=== PATIENT | female | born 1945 | race Caucasian/White ===

== ENCOUNTER → 2022-08-03 09:21 | Outpatient (CLI) | payer MEDICARE, SELFPAY ==
[2022-08-03 12:44] LABS: Cancer Antigen 125 12.5 U/mL (0-35)
== END ==
PROVIDERS: PCP Internal Medicine; Referring Provider Obstetrics & Gynecology; Visit Provider Obstetrics & Gynecology
DX: R19.4 Change in bowel habit (principal); R19.09 Other intra-abdominal and pelvic swelling, mass and lump
CPT/HCPCS: 36415; 86304

== ENCOUNTER 2024-08-05 07:56 | Day surgery (SDC) | payer MEDICARE, SELFPAY ==
[2024-08-01 07:54] VITALS: BMI 27.3
[2024-08-05] VITALS (15 sets, daily range): BP systolic 124–167; BP diastolic 63–86; PULSE 54–731; RESP 11–20; TEMP 35.7–36.6; O2SAT 90–100; BMI 27.1
--- NOTE | 2024-08-05 | PATH_ITS ---
[facility] Accession Number: [id number] No. of containers..01 Tissue . 01 Material submitted: . uterus - UTERUS, BILATERAL FALLOPIAN TUBES AND BILATERAL OVARIES . 01 Diagnosis: UTERUS, BILATERAL FALLOPIAN TUBES AND BILATERAL OVARIES, HYSTERECTOMY AND BILATERAL SALPINGO-OOPHORECTOMY: Nonproliferative endometrium. Cervix with no significant diagnostic alterations. Benign leiomyomata. Bilateral ovaries with inclusion cysts. Bilateral fimbriated fallopian tubes with no significant pathologic alterations. [facility] 08/08/2024 1058 Local . 01 Electronically signed: . Lissa Murrieta MD, Pathologist NPI- [id number] . 01 Gross description: . Received in formalin with two patient identifiers and uterus, fallopian tubes, ovaries, bilateral, is an intact uterus (37 grams, 5.4 cm superior to inferior, 4.9 cm medial to lateral, 2.5 cm anterior to posterior) with attached cervix (3.8 x 3.2 cm), left fallopian tube (5.2 x 0.7 cm), left ovary (1 gram, 1.9 x 1.2 x 1.0 cm), right fallopian tube (6.9 x 0.8 cm), right ovary (1 gram, 2.3 x 1.5 x 1.1 cm). . The ectocervix is shen and wrinkled with a patulous os, 0.6 cm in diameter. The serosa has several nodules ranging from 0.5 to 1.8 cm in greatest dimension. The anterior is inked blue while the posterior is inked black. The endocervical margin has shen herringbone mucosa and measures 1.6 cm in length. The endometrial cavity is 1.9 cm from cornu to cornu and 2.2 cm in length with red velvety endometrium that averages 0.1 cm thick. The myometrium is shen and mildly trabecular, and measures up to 1.2 cm in maximum thickness with multiple well-circumscribed white whorled nodules up to 0.7 cm in greatest dimension located intramurally. . Both fallopian tube has violaceous smooth serosa with cystic structures up to 0.2 cm in greatest dimension filled with cloudy serous fluid. The lumens are stellate and unremarkable. . Both ovaries have a shen cerebriform surface with multiple cystic structure, 0.1 x 0.4 cm in greatest dimension, translucent with clear serous fluid. The cut surfaces are physiologic and unremarkable. . Tamale Maker sections are submitted as follows: A1: Anterior cervix. A2: Posterior cervix. A3: Anterior full thickness section. A4: Posterior full thickness section. A5: Nodules. A6: Left fallopian tube to include one-half of bisected fimbriae and cross sections. A7: Left ovary. A8: Right fallopian tube to include one-half of bisected fimbriae ad cross sections. A9: Right ovary. ([id number]) /MRV 08/07/2024 0401 Local . 01 Pathologist provided ICD-10: D25.9 . 01 CPT . 574644 Specimen Comment: A courtesy copy of this report has been sent to [phone] Performed at: [facility] [address], [place], [place] [id number] MD Lalit Frey MD Phone: [phone]
[2024-08-05] MEDS: LACTATED RINGERS 1,000 ML 42 ML IV ×2 (08:41→12:19)
--- NOTE | 2024-08-05 09:38 | PM.PREOP ---
Pre-operative Note Interval Note History & Physical reviewed/Exam performed by Physician: Yes Changes to H&P: No H&P completed within 30 days and has changed as indicated here:: 07/24/24
[2024-08-05] MEDS: CEFAZOLIN 2 GM/100 ML PREMIX 100 ML IV (09:46)
--- NOTE | 2024-08-05 10:13 | SUR.OPER ---
Lithotomy on padded OR bed. [place] Pad Positioner under torso. Head on pillow, arms padded and tucked at sides. Legs secured in padded yellow fins stirrups.
[2024-08-05] MEDS: BUPIVACAINE 0.25% (PF) 30 ML, EPINEPHrine 0.15 MG INJ (10:19)
[2024-08-05] MEDS: BUPIVACAINE 0.25% W/ EPI (PF) 10 ML VIAL 20 ML INJ (10:59)
--- NOTE | 2024-08-05 11:59 | P.OP_ITS ---
Operative Date/Time/Diagnoses Date of procedure: 08/05/24 Time of procedure: 11:59 Pre-op diagnosis: Symptomatic uterine prolapse, cystocele, rectocele Post-op diagnosis: same Procedure & Clinicians Procedure: Procedures Operation Date: 08/05/24 09:45 Actual Procedure Side Surgeon p Laparoscopic Assisted Vaginal Hysterectomy bilateral salingo-oophorectomy ly sis adhesion Nereida Echevarria MD s Anterior/Posterior Repair Nereida Echevarria MD Indications: 79-year-old 2 para 2 with symptomatic uterine prolapse, cystocele, and rectocele. Patient has used a pessary, but now desires definitive surgical therapy. Surgeon: Nereida Echevarria [employer] History Teacher: Yanet Brown Anesthesia Type: General and Local Operative Notes Findings: 5 week size prolapsed uterus Small 2 cm fibroid on the posterior uterus Normal tubes and ovaries Second-degree uterine prolapse Second-degree rectocele Second-degree cystocele Normal liver and gallbladder Normal appendix Adhesions in the right lower quadrant Closure Type: primary Specimen(s): left tube & ovary, right tube & ovary and uterus Applied: catheter and other (Betadine moistened vaginal packing) Estimated blood loss (mL): 50 Blood products transfused: none Procedure in detail: The patient was taken to the operating room where she was placed in the dorsal supine position. After adequate general endotracheal anesthesia was achieved, she was placed in the dorsal lithotomy position, and prepped and draped in the usual sterile fashion. A time-out was performed. A bivalve speculum was placed into the vagina, and a single-tooth tenaculum was placed on the anterior lip of the cervix. The cervical os was sequentially dilated until the ZUMI uterine manipulator could pass easily into the endometrial cavity. The single-tooth tenaculum was removed from the anterior lip of the cervix, and the bivalve speculum was removed from the vagina. Attention was then turned to the abdomen where 6 mL of half percent Marcaine with epinephrine were injected in the umbilical fold. A 5 mm incision was made. The Veress needle was placed into the peritoneal cavity, and its placement confirmed by aspiration and drop test. The abdominal cavity was insufflated with 4 L of CO2. The Veress needle was removed, and a 5 mm trocar was placed without difficulty. Initial inspection of the pelvis revealed the findings noted above. Two other incisions were made at the level of the umbilicus, 4 cm lateral to the midline, after 6 cc of 0.25% Marcaine with epinephrine were injected. These were 5 mm incisions. Two 5 mm trocars were placed under direct visualization. The right tube and ovary were grasped with an atraumatic grasper. The infundibulopelvic ligament on the right side was cauterized and cut with the power seal. The round ligament and broad ligament were cauterized and cut. This was continued to the level of the uterine arteries. This was repeated on the patient's left side. Using the power seal, the adhesions in the right lower quadrant were taken down. The instruments were removed from the abdomen. Attention was then turned to the vagina where the ZUMI uterine manipulator was removed from the uterus. The cervix was grasped with a 4 tooth tenaculum. 10 mL of quarter percent Marcaine with epinephrine were injected circumferentially around the cervix. The cervix was circumscribed. The bladder and rectum were dissected off the lower uterine segment and cervix with an open moistened Ray-Farrah. The peritoneum was entered sharply with the Metzenbaum scissors anteriorly and a Ana Luisa placed. The peritoneum was entered posteriorly with the Metzenbaum scissors and a Rehman retractor was placed into the posterior cul-de-sac. The uterosacral cardinal ligament complexes were clamped, transected, and suture ligated with 0 Vicryl. These were attached to hemostat. The uterine arteries were clamped, transected, and suture ligated with 0 Vicryl. The uterus was handed off for specimen with the tubes and ovaries. The vaginal cuff was closed with 0 Vicryl with a series of simple interrupted sutures. The tagged sutures were cut. Allis clamps were placed at the superior and inferior edges of the cystocele. 6 mL of half percent Marcaine with epinephrine were injected and an incision was made with a #10 blade between the 2 Allis clamps. Using a # 10 blade, the fascia was dissected off of the mucosa. The mucosa was dissected off the underlying fascia using an open moistened Ray-Farrah. The fascia was reapproximated with 0 Vicryl with a series of horizontal mattress sutures. The excess vaginal mucosa was excised. The mucosa was closed using a running suture with 2-0 Vicryl. The Rehman retractor was removed from the vagina. Allis clamps were placed at the superior and inferior aspects of the rectocele. 6 mL of half percent Marcaine with epinephrine were injected. An incision was made with a #10 blade between the 2 Allis clamps. The mucosa was dissected off of the fascia using a # 10 blade and an open moistened Ray-Farrah. The fascia was reapproximated with 0 Vicryl with interrupted sutures. The excess vaginal mucosa was excised. The mucosa was closed with 2-0 Vicryl in a running fashion, including the underlying fascia to close the space. A Betadine moistened vaginal pack was placed into the vagina. A rectal exam was done and there were no sutures palpable in the rectum. Attention was then turned to the abdomen after gloves were changed. The abdomen was re-insufflated with carbon dioxide gas. The pelvis was examined. The pelvis was irrigated with warm normal saline. There was a small area of oozing. FloSeal was placed over the peritoneal edges. Hemostasis was achieved. The instruments were removed from the abdomen. The CO2 was allowed to escape. The incisions were repaired with 4-0 Monocryl in a subcuticular fashion. Steri-Strips and Allevyn dressings were placed. The urine was clear. Sponge, lap, and instrument counts were correct x-2. The patient tolerated the procedure well, was taken to PACU in stable condition. Complications: none Post-operative Condition: stable Disposition: PACU Plan for aftercare: To acute care after recovery
[2024-08-05] MEDS: ACETAMINOPHEN 325 MG TABLET 650 MG PO ×2 (12:06→18:47)
[2024-08-05] MEDS: OXYCODONE IR 5 MG TABLET PO (12:06)
--- NOTE | 2024-08-05 14:01 | PC.NURSE ---
Addendum entered by Jasmina Lim R.N. 08/05/24 18:40: Patient had a small 100cc emesis at dinner. Given zofran and better. She is visiting with her and states that she is feeling better. Original Note: Patient is alert and oriented x4. She has packing and a gregory catheter in place with yellow urine output. Patient states that her gregory catheter feels like it is stinging, explained to her that this does happen and that it will be taken out in the morning. We will keep her comfortable with pain medication when needed. Skin assessment done, and patient has [address] to her abdomen that are all cdi.
[2024-08-05] MEDS: LACTATED RINGERS 1,000 ML 50 ML IV (14:04)
[2024-08-05] MEDS: IBUPROFEN 600 MG TABLET PO ×2 (14:04→18:48)
[2024-08-05] MEDS: ONDANSETRON 4 MG/2 ML INJ IV (17:47)
[2024-08-05] MEDS: DOCUSATE 100 MG CAPSULE 200 MG PO (21:37)
[2024-08-05] MEDS: LOSARTAN 50 MG TABLET PO (21:38)
[2024-08-05] MEDS: ATORVASTATIN 20 MG TABLET 10 MG PO (21:39)
[2024-08-06] MEDS: IBUPROFEN 600 MG TABLET PO (05:15)
[2024-08-06] MEDS: LEVOTHYROXINE 88 MCG TABLET PO (05:15)
[2024-08-06] MEDS: ACETAMINOPHEN 325 MG TABLET 650 MG PO ×2 (05:15→09:50)
[2024-08-06 06:55] LABS: Add Manual Diff / Slide Review NO; Basophils Absolute Auto 0 /uL (0-100); Basophils Percent Auto 0.1 % (0-2); Eosinophils Absolute Auto 0 /uL (0-450); Hematocrit 33.3 % (36-46); Hemoglobin 11.8 g/dL (12.0-16.0); Lymphocytes Absolute Auto 1200 /uL (1100-4500); Lymphocytes Percent Auto 13.2 % (25-40); Mean Corpuscular HGB Conc 35.3 % (30-36); Mean Corpuscular Hemoglobin 32.2 PG (26-34); Mean Corpuscular Volume 91.2 fL (80-100); Monocytes Absolute Auto 800 /uL (0-900); Monocytes Percent Auto 8.6 % (3-14); Neutrophils Absolute Auto 6900 /uL (1500-7000); Neutrophils Percent Auto 78.1 % (50-75); Platelet Count 183 X10^3/uL (150-400); Red Blood Cell Count 3.65 X10^6/uL (4.0-5.2); Red Cell Distribution Width 13.3 % (11.6-14.8); White Blood Cell Count 8.9 X10^3/uL (4.5-11.0)
[2024-08-06 07:00] VITALS: BP 113/69; PULSE 65; RESP 16; TEMP 36.6; O2SAT 96
[2024-08-06 07:07] LABS: BUN Creatinine Ratio 18.5 (6-22); Blood Urea Nitrogen 12 mg/dL (7-17); Calcium 8.8 mg/dL (8.4-10.2); Carbon Dioxide 28 mmol/L (22-32); Chloride 95 mmol/L (98-107); Estimated Glomerular Filt Rate > 60 mL/min (>60); Glucose 107 mg/dL (80-110); HEMOLYSIS < 15 (0-50); Potassium 3.9 mmol/L (3.4-5.1); Sodium 131 mmol/L (137-145)
[2024-08-06] MEDS: DOCUSATE 100 MG CAPSULE 200 MG PO (09:49)
[2024-08-06] MEDS: hydroCHLOROthiazide 25 MG TABLET PO (09:50)
--- NOTE | 2024-08-06 10:37 | CM.DANOTE ---
Initial DCP Assessment Note Pt is a 79 yo female, resident of [place] , now POD#1 from [facility] procedure with Dr Echevarria. PCP: ([facility]) Payer: MCR/A[employer] Reviewed chart, pt discussed in multidisciplinary rounds this morning. Provider has cleared patient for return home w/family to assist and pt has planned for home, DC order from Dr Echevarria has already been initiated this morning. No barriers identified at this time to patient's safe discharge home w/family to assist; close outpatient f/u recommended. CM team will plan to follow clinical course closely in case any DC needs or concerns arise. MADELEINE Sanchez Discharge Planning/Care Management CM Discharge Assessment Start: 08/06/24 10:27 Freq: Status: Active Protocol: Document 08/06/24 10:27 SYLVIA (Rec: 08/06/24 10:37 SYLVIA [id number]) Discharge Planning Assessment Assigned [employer] MADELEINE Rae DPOA/Assigned Designee Name Nikolay Barba, spouse Contact Information [phone] home [phone] cell Advance Directives? Yes Advance Directives on File No History Provided By Patient,Medical Record Prior Living Arrangements House Household Members spouse Type of transporation used prior to Drives own vehicle admit Independent with ADL's Yes Is patient alert and oriented? Yes Barriers to Discharge No Comment Home w/family w/ close outpatient follow up Discharge Plan Home Transportation Arrangement family Referrals Initiated None needed
== END 2024-08-06 10:35 | disposition home or self-care (01) ==
LOC: OR 07:57 → AC 08:00
PROVIDERS: PCP Student in an Organized Health Care Education/Training Program; Referring Provider Obstetrics & Gynecology; Visit Provider Obstetrics & Gynecology
PROC: 0UT9FZZ Resection of Uterus, Via Natural or Artificial Opening With Percutaneous Endoscopic Assistance (ICD-10-PCS; CPT 58552; principal; 2024-08-05 09:45)
PROC: (CPT 58552; 2024-08-05 09:45)
DX: N81.2 Incomplete uterovaginal prolapse (principal); N73.6 Female pelvic peritoneal adhesions (postinfective); D25.9 Leiomyoma of uterus, unspecified; N83.292 Other ovarian cyst, left side; N83.291 Other ovarian cyst, right side
CPT/HCPCS: 58552; 57260; 36415; 80048; 82962; 85025; J0171; J0330; J0690; J1100; J1170; J2405; J2704; J3010; J3490

== ENCOUNTER → 2024-10-07 14:35 | Outpatient (CLI) | payer MEDICARE, SELFPAY ==
[2024-08-05 13:54] VITALS: BMI 27.1
[2024-10-07 15:47] LABS: Free T4, Direct Thyroxine 0.83 ng/dL (0.78-2.19)
[2024-10-07 16:01] LABS: Thyroid Stimulating Hormone 1.37 uIU/mL (0.47-4.68)
== END ==
PROVIDERS: Referring Provider Obstetrics & Gynecology; Visit Provider Obstetrics & Gynecology
DX: E04.9 Nontoxic goiter, unspecified (principal)
CPT/HCPCS: 36415; 84439; 84443